=== PATIENT | female | born 2000 | race Caucasian/White ===

== ENCOUNTER 2022-04-21 09:19 | Emergency (ER) | payer OTHER ==
[2022-04-21 09:23] VITALS: RESP 18; TEMP 97.6
[2022-04-21 10:30] LABS: Basophils % (A) 0 %; Eosinophils % (A) 1 %; HCT 36.8 % (34.0-46.0); HGB 12.8 gm/dL (11.4-16.0); Lymphocytes # (A) 1.7 k/uL (1.0-4.8); Lymphocytes % (A) 29 %; MCH 30.8 pg (25.0-35.0); MCHC 34.7 g/dL (31.0-37.0); MCV 88.7 fL (80.0-100.0); Mean Platelet Volume 8.3; Monocytes # (A) 0.2 k/uL (0-1.0); Monocytes % (A) 4 %; Neutrophils # (A) 3.8 k/uL (1.3-7.7); Neutrophils % (A) 65 %; Platelet Count 242 k/uL (150-450); RBC 4.15 m/uL (3.80-5.40); RDW 11.8 % (11.5-15.5); WBC 5.8 k/uL (3.8-10.6)
--- NOTE | 2022-04-21 10:30 | ED ---
Recheck HPI - General Chief Complaint: Recheck/Abnormal Lab/Rx Stated Complaint: 6 wks preg, cramping Time Seen by Provider: 04/21/22 09:55 Source: patient, RN notes reviewed Mode of arrival: ambulatory Limitations: no limitations - History of Present Illness Initial Comments: This is a 21-year-old female who presents to the emergency department for a pr egnancy check. States that she is approximately 6 weeks and is unable to get into an DISABILITY INSURANCE HEARING OFFICER until August of this year. States that one of the local offices will not accept her insurance and the other one has a very long waiting list. She is requesting an ultrasound and baseline blood work for initial evaluation. She has lower abdominal cramping and morning nausea, but no vomiting. She otherwise denies any complaints such as vaginal bleeding or discharge. This is her first . Denies any fevers, chills, sore throat, cough, dyspnea, chest pain, palpitations, vomiting, diarrhea, back pain, or headaches. - Related Data Previous Rx's Medication Instructions Recorded Doxylamine Succinate/Vit B6 1 each PO Q6H PRN #30 tab 04/21/22 [Doxylamine-Pyridoxine 10-10 mg] Allergies Allergy/AdvReac Type Severity Reaction Status Date / Time No Known Allergies Allergy Verified 04/21/22 09:23 Review of Systems ROS Statement: Those systems with pertinent positive or pertinent negative responses have been documented in the HPI. ROS Other: All systems not noted in ROS Statement are negative. Past Medical History Past Medical History: No Reported History History of Any Multi-Drug Resistant Organisms: None Reported Past Surgical History: No Surgical Hx Reported Past Psychological History: No Psychological Hx Reported Smoking Status: Former smoker Past Alcohol Use History: None Reported Past Drug Use History: None Reported General Exam Limitations: no limitations General appearance: alert, in no apparent distress Head exam: Present: atraumatic, normocephalic, normal inspection Respiratory exam: Present: normal lung sounds bilaterally. Absent: respiratory distress, wheezes, rales, rhonchi, stridor Cardiovascular Exam: Present: regular rate, normal rhythm, normal heart sounds. Absent: systolic murmur, diastolic murmur, rubs, gallop, clicks GI/Abdominal exam: Present: normal bowel sounds Neurological exam: Present: alert, oriented X3, CN II-XII intact Psychiatric exam: Present: normal affect, normal mood Skin exam: Present: warm, dry, intact, normal color. Absent: rash Course Vital Signs 04/21/22 04/21/22 09:20 12:53 Temperature 97.6 F Pulse Rate 83 53 L Respiratory 18 18 Rate Blood Pressure 120/68 107/63 O2 Sat by Pulse 100 99 Oximetry Medical Decision Making - Medical Decision Making This is a 21-year-old female who presents to the emergency department for an OB check. Was pt. sent in by a medical professional or institution? @ -No Did you speak to anyone other than the patient for history? @ -No Did you review nursing and triage notes? @ -Yes, and I agree, it is accurate with regards to the patient's symptoms. Were old charts reviewed? @ -No Differential Diagnosis? @ -Differential abdominal pain in Benign symptoms, UTI, gastroenteritis, miscarriage, cholecystitis, colitis, appendicitis, this is not meant to be an all-inclusive list. What testing was considered but not performed? (CT, X-rays, U/S, labs)? Why? @ -None What meds were considered but not given? Why? @ -None Did you discuss the management of the patient with other professionals? @ -No Did you reconcile home meds? @ -No Was smoking cessation discussed for >3mins.? @ -No Was critical care preformed (if so, how long)? @ -No Were there social determinants of health that impacted care today? How? (Homelessness, low income, unemployed, alcoholism, drug addiction, transportation, low edu. Level, literacy, decrease access to med. care, ch[facility], rehab)? @ -No Was there de-escalation of care discussed even if they declined? (Discuss DNR or withdrawal of care, Hospice)? @ -No What co-morbidities impacted this encounter? (DM, HTN, Smoking, COPD, CAD, Cancer, CVA, Hep., AIDS, mental health diagnosis, sleep apnea, morbid obesity)? @ - Was patient admitted / discharged? @ -Discharged. First trimester lab work was ordered due to the patient being unable to establish with an OB in a timely manor. CBC, CMP, urinalysis, hCG, and ABO/Rh results did return today. Lab work was nonactionable, however she was advised that she is a B- blood type, in which case if she does develop any vaginal bleeding she needs to be sure to come to the emergency department for a shot of RhoGAM. The additional first trimester lab work, including testing for hepatitis B, HIV, rubella, syphillis, gonorrhea, and chlamydia were not available at the time of discharge. Patient was advised of this ahead of time, and I had registration set her up for the patient portal. Discussed with the patient that I would not be able to follow up on her results and she will need to review these on her own. Patient expressed understanding. Obstetrics ultrasound obtained, revealing a single live intrauterine . Prescription for Diclegis provided with dosing instructions reviewed. Advised o [id number] vitamin B6 and Unisom if her insurance will not cover this. Advised to begin taking a vitamin if she is not already doing so and to only take Tylenol as needed for pain and avoid any [id number] anti- inflammatories such as ibuprofen. She was given information for three local payroll human resources assistant offices, advised she continue doing her best to become established for ongoing care. Undiagnosed new problem with uncertain prognosis? @ -None Drug Therapy requiring intensive monitoring for toxicity (Heparin, Nitro, Insulin, Cardizem)? @ -None Were any procedures done? @ -None Diagnosis/symptom? @ -Abdominal pain in Acute, or Chronic, or Acute on Chronic? @ -Acute Uncomplicated (without systemic symptoms) or Complicated (systemic symptoms)? @ -Uncomplicated Side effects of treatment? @ -None Exacerbation, Progression, or Severe Exacerbation] @ -Not applicable Poses a threat to life or bodily function? @ -No Diagnosis/symptom? @ -Nausea in Acute, or Chronic, or Acute on Chronic? @ -Acute Uncomplicated (without systemic symptoms) or Complicated (systemic symptoms)? @ -Uncomplicated Side effects of treatment? @ -None Exacerbation, Progression, or Severe Exacerbation] @ -None Poses a threat to life or bodily function? @ -No Return precautions reviewed in depth, the patient is instructed to return to the emergency department with any new, worsening, or concerning symptoms. Patient verbalized understanding. This case was discussed in detail with the attending ED physician, Dr. Lau. Presentation, findings, and treatment plan discussed in detail as well. - Lab Data Result diagrams: 04/21/22 10:14 04/21/22 10:14 Lab Results 04/21/22 04/21/22 04/21/22 Range/Units 09:55 10:05 10:14 WBC 5.8 (3.8-10.6) k/uL RBC 4.15 (3.80-5.40) m/uL Hgb 12.8 (11.4-16.0) gm/dL Hct 36.8 (34.0-46.0) % MCV 88.7 (80.0-100.0) fL MCH 30.8 (25.0-35.0) pg MCHC 34.7 (31.0-37.0) g/dL RDW 11.8 (11.5-15.5) % Plt Count 242 (150-450) k/uL MPV 8.3 Neutrophils % 65 % Lymphocytes % 29 % Monocytes % 4 % Eosinophils % 1 % Basophils % 0 % Neutrophils # 3.8 (1.3-7.7) k/uL Lymphocytes # 1.7 (1.0-4.8) k/uL Monocytes # 0.2 (0-1.0) k/uL Eosinophils # 0.0 (0-0.7) k/uL Basophils # 0.0 (0-0.2) k/uL Sodium (137-145) mmol/L Potassium (3.5-5.1) mmol/L Chloride (98-107) mmol/L Carbon Dioxide (22-30) mmol/L Anion Gap mmol/L BUN (7-17) mg/dL Creatinine (0.52-1.04) mg/dL Est GFR (CKD-EPI)AfAm (>60 ml/min/1.73 sqM) Est GFR (CKD-EPI)NonAf (>60 ml/min/1.73 sqM) Glucose (74-99) mg/dL Calcium (8.4-10.2) mg/dL Total Bilirubin (0.2-1.3) mg/dL AST (14-36) U/L ALT (4-34) U/L Alkaline Phosphatase (38-126) U/L Total Protein (6.3-8.2) g/dL Albumin (3.5-5.0) g/dL HCG, Quant mIU/mL Urine Color Urine Appearance (Clear) Urine pH (5.0-8.0) Ur Specific Antimony (1.001-1.035) Urine Protein (Negative) Urine Glucose (UA) (Negative) Urine Ketones (Negative) Urine Blood (Negative) Urine Nitrite (Negative) Urine Bilirubin (Negative) Urine Urobilinogen (<2.0) mg/dL Ur Leukocyte Esterase (Negative) Blood Type B Negative Blood Type Confirm B Negative Blood Type Recheck Bld Type Recheck Status 04/21/22 04/21/22 04/21/22 Range/Units 10:14 10:14 10:22 WBC (3.8-10.6) k/uL RBC (3.80-5.40) m/uL Hgb (11.4-16.0) gm/dL Hct (34.0-46.0) % MCV (80.0-100.0) fL MCH (25.0-35.0) pg MCHC (31.0-37.0) g/dL RDW (11.5-15.5) % Plt Count (150-450) k/uL MPV Neutrophils % % Lymphocytes % % Monocytes % % Eosinophils % % Basophils % % Neutrophils # (1.3-7.7) k/uL Lymphocytes # (1.0-4.8) k/uL Monocytes # (0-1.0) k/uL Eosinophils # (0-0.7) k/uL Basophils # (0-0.2) k/uL Sodium 136 L (137-145) mmol/L Potassium 4.2 (3.5-5.1) mmol/L Chloride 106 (98-107) mmol/L Carbon Dioxide 21 L (22-30) mmol/L Anion Gap 9 mmol/L BUN 8 (7-17) mg/dL Creatinine 0.55 (0.52-1.04) mg/dL Est GFR (CKD-EPI)AfAm >90 (>60 ml/min/1.73 sqM) Est GFR (CKD-EPI)NonAf >90 (>60 ml/min/1.73 sqM) Glucose 84 (74-99) mg/dL Calcium 8.9 (8.4-10.2) mg/dL Total Bilirubin 0.7 (0.2-1.3) mg/dL AST 18 (14-36) U/L ALT 13 (4-34) U/L Alkaline Phosphatase 38 (38-126) U/L Total Protein 7.5 (6.3-8.2) g/dL Albumin 4.6 (3.5-5.0) g/dL HCG, Quant 43689.0 mIU/mL Urine Color Yellow Urine Appearance Clear (Clear) Urine pH 6.5 (5.0-8.0) Ur Specific Antimony 1.026 (1.001-1.035) Urine Protein Trace H (Negative) Urine Glucose (UA) Negative (Negative) Urine Ketones Negative (Negative) Urine Blood Negative (Negative) Urine Nitrite Negative (Negative) Urine Bilirubin Negative (Negative) Urine Urobilinogen <2.0 (<2.0) mg/dL Ur Leukocyte Esterase Negative (Negative) Blood Type Blood Type Confirm Blood Type Recheck No Previous Record Bld Type Recheck Status CABO Indicated - Radiology Data Radiology results: report reviewed, image reviewed Disposition Clinical Impression: 6 weeks gestation of , Nausea/vomiting in , Abdominal pain during Disposition: HOME SELF-CARE Instructions (If sedation given, give patient instructions): Nausea and Vomiting in (ED), (ED), at 7 to 10 Weeks (ED) Additional Instructions: Return to the emergency department with any new, worsening, or concerning symptoms, especially if you develop any bleeding, because you will need a shot of RhoGAM. Begin taking a vitamin if you are not already done so. If you develop any pain, only take Tylenol, do not take any anti-inflammatories such as ibuprofen. Prescription for doxylamine pyridoxine provided. You can take the doxylamine pyridoxine up to 3 times daily as needed for nausea and vomiting. Start with 2 tablets at night, if symptoms persist after 2 days, increase dosage to 1 tablet every morning and 2 tablets at night. You may further increase the dose if needed to 1 tablet in the morning, 1 tablet in the mid to afternoon, and 2 tablets at night, with a maximum of 4 tablets each day. Take this on an empty stomach. If it is too expensive at the pharmacy, you can purchase [id number] vitamin B6 and Unisom for the same effect. Dr. Kallie rasheed as listed below is another local DISABILITY INSURANCE HEARING OFFICER, she is affiliated with [facility]. [facility] and [facility] DISABILITY INSURANCE HEARING OFFICER are the other local obstetrics offices, do your best to get an appointment at one of the three offices. I listed a provider from the other 2 offices as well, which will contain the contact information. Make sure to check your patient portal for the rest of your lab work. Prescriptions: Doxylamine Succinate/Vit B6 [Doxylamine-Pyridoxine 10-10 mg] 1 each PO Q6H PRN #30 tab PRN Reason: Nausea Is patient prescribed a controlled substance at d/c from ED?: No Referrals: None,Stated [Primary Care Provider] - 1-2 days Iqra Arndt MD [REFERRING] - 1-2 days Antoinette Goodson DO [Doctor of Osteopathic Medicine] - 1-2 days Charlene Zavala MD [STAFF PHYSICIAN] - 1-2 days
[2022-04-21 11:07] LABS: ALT 13 U/L (4-34); AST 18 U/L (14-36); African American GFR (CKD) >90 (>60 ml/min/1.73 sqM); Albumin 4.6 g/dL (3.5-5.0); Alkaline Phosphatase 38 U/L (38-126); Anion Gap 9 mmol/L; Appearance,Urine Clear (Clear); Bilirubin,Urine Negative (Negative); Blood Urea Nitrogen 8 mg/dL (7-17); Blood,Urine Negative (Negative); Calcium 8.9 mg/dL (8.4-10.2); Carbon Dioxide 21 mmol/L (22-30); Chloride 106 mmol/L (98-107); Color,Urine Yellow; Glucose 84 mg/dL (74-99); Glucose,Urine (UA) Negative (Negative); Ketones,Urine Negative (Negative); Leukocyte Esterase,Urine Negative (Negative); Nitrite,Urine Negative (Negative); Non-African American GFR(CKD) >90 (>60 ml/min/1.73 sqM); PH, Urine 6.5 (5.0-8.0); Potassium 4.2 mmol/L (3.5-5.1); Protein,Urine Trace (Negative); Sodium 136 mmol/L (137-145); Specific Gravity,Urine 1.026 (1.001-1.035); Total Bilirubin 0.7 mg/dL (0.2-1.3); Total Protein 7.5 g/dL (6.3-8.2); Urobilinogen,Urine <2.0 mg/dL (<2.0)
--- NOTE | 2022-04-21 11:50 | US ---
EXAMINATION TYPE: Transabdominal DATE OF EXAM: 04/21/2022 11:24 AM COMPARISON: NONE CLINICAL HISTORY: Pelvic pain and cramping in . No bleeding. EXAM PERFORMED: Transvaginal (TV) and Transabdominal (TA) EXAM MEASUREMENTS: GESTATIONAL AGE / DATING Physician Established: Not yet established Dates by LMP: ( 6 weeks/6 days) EDC: 12/09/2022 Dates by First Scan: No previous this is first scan Dates by Current Scan for: ( 6 weeks/2 days) EDC: 12/13/2022 MATERNAL ANATOMY Uterus: 9.8 x 5.9 x 4.3 cm Right Ovary: 4.9 x 3.3 x 2.9 cm Left Ovary: 3.4 x 3.0 x 2.1 cm Post CDS / Adnexa: free fluid Presence of corpus luteal cyst: right ovary= 3.3 x 2.5 x 3.0 cm Presence of subchorionic bleed: no GESTATION / SURVEY CRL: 0.5 cm (6 weeks/2 days) MSD: seen, not measured Yolk Sac (normal less than 6mm): 2.6 mm Heart Rate: 110 bpm Rhythm: Normal IUP: Viable IUP Date of LMP: 03/04/2022, G1 Beta HcG (if available): Not available at this time GS, YS and CRL visualized. GS appears within right endometrium. Some free fluid is within the pelvis. IMPRESSION: 1. Single intrauterine gestation estimated at 6 weeks 2 days gestation based on crown-rump length. Ca rdiac activity measures 110 bpm.
[2022-04-21 12:54] VITALS: BP 107/63; PULSE 53
[2022-04-21 19:19] LABS: Hepatitis B Surface AB- Quant 3.5 mIU/mL; Hepatitis B Surface Antibody Nonreactive (Nonreactive); Hepatitis B Surface Antigen Nonreactive (Nonreactive)
[2022-04-24 13:47] LABS: C. trachomatis,PCR Negative (Neg,Equiv); Chlamydia trachomatis Source Urine; N. gonorrhoeae,PCR Negative (Neg,Equiv); Neisseria Source Urine
[2022-04-25 02:43] LABS: HIV 2 AB Non-Reactive (Non-Reactive); HIV AB P24 Non-Reactive (Non-Reactive); HIV P24 AG Non-Reactive (Non-Reactive)
== END 2022-04-21 12:54 | disposition home or self-care (01) ==
LOC: EC 09:19
DX: O26.891 Other specified pregnancy related conditions, first trimester (principal); O21.9 Vomiting of pregnancy, unspecified; O99.331 Smoking (tobacco) complicating pregnancy, first trimester; Z87.891 Personal history of nicotine dependence; Z3A.01 Less than 8 weeks gestation of pregnancy
CPT/HCPCS: 36415; 76801; 76817; 80053; 81003; 84702; 85025; 86706; 86762; 86780; 86900; 86901; 87340; 87390; 87491; 87591; 99284